=== PATIENT | male | born 1955 | race African-American/Black ===

== ENCOUNTER 2020-01-07 10:07 | Inpatient (IN) | payer MEDICARE, MEDICAID ==
[~2020-01-07] VITALS: Ht 175.3 cm; Wt 67.2 kg
[2020-01-07] MEDS ORDERED: ACETAMINOPHEN 325MG TABLET PO STA (10:18)
[2020-01-07] MEDS ORDERED: LIDOCAINE HCL/PF 1% 2ML VIAL ONE (10:26)
[2020-01-07] MEDS ORDERED: SODIUM CHLORIDE 0.9% 1000ML BAG (SEPSIS BOLUS) IV ONE (10:30)
[2020-01-07] MEDS ORDERED: LORAZEPAM 2MG/ML CPJ ONE (10:56)
[2020-01-07] MEDS ORDERED: LORAZEPAM 2MG/ML CPJ IV ONE (11:00)
[2020-01-07] MEDS ORDERED: ACETAMINOPHEN 650MG SUPP PR ONE (11:00)
[2020-01-07 11:06] LABS: BASOPHILS % 0.8 % (0.0-2.0); EOSINOPHILS % 0.7 % (0.0-5.0); HEMATOCRIT. 35.4 % (42.0-52.0); HEMOGLOBIN. 12.3 g/dL (14.0-18.0); LYMPHOCYTES % 12.7 % (20.0-50.0); MEAN CORPUSCULAR HEMOGLOBIN 31.2 pg (28.0-32.0); MEAN CORPUSCULAR VOLUME 89.9 fL (80.0-94.0); MEAN PLATELET VOLUME 8.6 fl (7.4-10.4); MONOCYTES % 7.2 % (2.0-8.0); NEUTROPHILS % 78.6 % (40.0-76.0); PLATELET 222 x1000/uL (130-400); RED BLOOD CELL COUNT 3.94 mill/uL (4.7-6.1); RED CELL DISTRIBUTION WIDTH 17.4 % (11.6-14.6)
[2020-01-07 11:17] LABS: CLARITY URINE CLEAR (CLEAR); COLOR URINE YELLOW (YELLOW); KETONES URINE NEGATIVE (NEGATIVE); LEUKOCYTE ESTERASE URINE NEGATIVE (NEGATIVE); NITRITE URINE NEGATIVE (NEGATIVE); OCCULT BLOOD URINE NEGATIVE (NEGATIVE); PROTEIN URINE NEGATIVE (NEGATIVE); SPECIFIC GRAVITY URINE 1.014 (1.005-1.030); UROBILINOGEN URINE 0.2 E.U./dL (0.2-1.0)
[2020-01-07 11:17] LABS: CHLORIDE 102 mEq/L (98-107)
[2020-01-07 11:48] LABS: INR 1.1
[2020-01-07] MEDS ORDERED: IPRATROPIUM/ALBUTEROL 0.5-3(2.5)MG/3ML NEB HHN PRN (13:00)
[2020-01-07] MEDS ORDERED: LORAZEPAM 2MG/ML CPJ IV PRN (13:00)
[2020-01-07] MEDS ORDERED: ONDANSETRON HCL 4MG/2ML INJ IV PRN (13:00)
[2020-01-07] MEDS ORDERED: CLONIDINE 0.1MG TABLET PO PRN (13:00)
[2020-01-07] MEDS ORDERED: LEVOFLOXACIN 750MG PREMIX 150 ML IV NR (14:06)
[2020-01-07 14:09] LABS: FOLIC ACID (FOLATE) SERUM >20 ng/mL ng/mL (>5.38)
[2020-01-07] MEDS: SODIUM CHLORIDE 0.9% 1,000 ML IV SCH (14:16)
[2020-01-07] MEDS: LEVETIRACETAM 500MG PREMIX 100 ML IV NR ×2 (14:16→14:29)
[2020-01-07 14:19] LABS: VITAMIN B12 SERUM 594 pg/mL (211-911)
[2020-01-07] MEDS: ENOXAPARIN 40MG/0.4ML SYR SUBCUT SCH (14:30)
[2020-01-07 15:59] LABS: BG BASE EXCESS -2.3 mmol/L (-2.0-2.0); BG CARBOXYHEMOGLOBIN 0.3 % (0.5-1.5); BG METHEMOGLOBIN 0.2 % (0.0-1.5); BG OXYHEMOGLOBIN 95.5 % (94.0-97.0); BG PCO2 31.5 mmHg (35.0-45.0); BG PH 7.442 (7.350-7.450); BG PO2 77.9 mmHg (75.0-100.0); BG SAMPLE SITE RIGHT RADIAL; BG TOTAL HEMOGLOBIN 12.1 g/dL (12.0-18.0); BG VENT MODE ROOM AIR
[2020-01-07] MEDS ORDERED: LEVETIRACETAM 500MG PREMIX 100 ML IV SCH (21:00)
[2020-01-07 23:41] VITALS: BP 132/74
[2020-01-08] VITALS (13 sets, daily range): BP systolic 90–132; BP diastolic 49–82
[2020-01-08] MEDS: LEVETIRACETAM 500MG PREMIX 100 ML IV SCH ×2 (01:27→20:30)
[2020-01-08] MEDS: SODIUM CHLORIDE 0.9% 1,000 ML IV SCH ×2 (04:16→14:23)
[2020-01-08 07:00] LABS: BASOPHILS % 0.8 % (0.0-2.0); EOSINOPHILS % 1.2 % (0.0-5.0); HEMATOCRIT. 34.5 % (42.0-52.0); HEMOGLOBIN. 11.8 g/dL (14.0-18.0); LYMPHOCYTES % 24.8 % (20.0-50.0); MEAN CORPUSCULAR HEMOGLOBIN 30.8 pg (28.0-32.0); MEAN CORPUSCULAR VOLUME 90.1 fL (80.0-94.0); MEAN PLATELET VOLUME 8.9 fl (7.4-10.4); MONOCYTES % 13.1 % (2.0-8.0); NEUTROPHILS % 60.1 % (40.0-76.0); PLATELET 210 x1000/uL (130-400); RED BLOOD CELL COUNT 3.83 mill/uL (4.7-6.1); RED CELL DISTRIBUTION WIDTH 17.6 % (11.6-14.6)
[2020-01-08 07:05] LABS: CHLORIDE 108 mEq/L (98-107)
[2020-01-08 07:21] LABS: LDL CHOLESTEROL 64 mg/dL (5-100)
[2020-01-08 07:22] LABS: HDL CHOLESTEROL 64 mg/dL (40-59)
[2020-01-08] MEDS ORDERED: LEVOFLOXACIN 750MG PREMIX 150 ML IV SCH (13:00)
[2020-01-08] MEDS: LEVOFLOXACIN 750MG PREMIX 150 ML IV SCH (14:02)
[2020-01-08] MEDS: ENOXAPARIN 40MG/0.4ML SYR SUBCUT SCH (14:02)
[2020-01-08] MEDS: FOLIC ACID/VITAMIN B COMP W-C TABLET PO SCH (17:09)
[2020-01-08] MEDS: THIAMINE HCL 100MG TABLET PO SCH (17:09)
[2020-01-09] VITALS (11 sets, daily range): BP systolic 112–147; BP diastolic 21–93
[2020-01-09] MEDS: SODIUM CHLORIDE 0.9% 1,000 ML IV SCH ×2 (05:08→16:39)
[2020-01-09 06:40] LABS: HEMATOCRIT. 32.8 % (42.0-52.0); HEMOGLOBIN. 11.1 g/dL (14.0-18.0); MEAN CORPUSCULAR HEMOGLOBIN 30.5 pg (28.0-32.0); MEAN CORPUSCULAR VOLUME 89.8 fL (80.0-94.0); MEAN PLATELET VOLUME 8.8 fl (7.4-10.4); PLATELET 194 x1000/uL (130-400); RED BLOOD CELL COUNT 3.65 mill/uL (4.7-6.1); RED CELL DISTRIBUTION WIDTH 17.5 % (11.6-14.6)
[2020-01-09 06:46] LABS: CHLORIDE 111 mEq/L (98-107)
[2020-01-09] MEDS: LEVETIRACETAM 500MG PREMIX 100 ML IV SCH (09:11)
[2020-01-09] MEDS: THIAMINE HCL 100MG TABLET PO SCH (09:11)
[2020-01-09] MEDS: FOLIC ACID/VITAMIN B COMP W-C TABLET PO SCH (09:11)
[2020-01-09 12:41] LABS: PLATELET ESTIMATE NORMAL
[2020-01-09] MEDS: LEVOFLOXACIN 750MG PREMIX 150 ML IV SCH (14:57)
[2020-01-09] MEDS: ENOXAPARIN 30MG/0.3ML SYR SUBCUT SCH (14:57)
[2020-01-09] MEDS: LEVETIRACETAM 500MG TABLET PO SCH (20:58)
[2020-01-10] VITALS: BP 130/93
[2020-01-10] MEDS ORDERED: HYDROCODONE/ACETAMINOPHEN 5/325MG TABLET PO PRN
[2020-01-10 04:00] VITALS: BP 95/62
[2020-01-10 07:12] LABS: HEMATOCRIT. 32.8 % (42.0-52.0); HEMOGLOBIN. 11.4 g/dL (14.0-18.0); MEAN CORPUSCULAR HEMOGLOBIN 30.7 pg (28.0-32.0); MEAN CORPUSCULAR VOLUME 88.6 fL (80.0-94.0); MEAN PLATELET VOLUME 8.6 fl (7.4-10.4); PLATELET 209 x1000/uL (130-400); RED CELL DISTRIBUTION WIDTH 17.2 % (11.6-14.6)
[2020-01-10 07:18] LABS: CHLORIDE 106 mEq/L (98-107)
[2020-01-10 08:00] VITALS: BP 109/74
[2020-01-10] MEDS ORDERED: THIA100T72 PO (09:39)
[2020-01-10] MEDS ORDERED: KEPP500 PO (09:39)
[2020-01-10] MEDS ORDERED: NEPVIT PO (09:39)
[2020-01-10] MEDS ORDERED: POTASSIUM CHLORIDE 20MEQ TABLET SR PO NR (09:45)
[2020-01-10] MEDS: FOLIC ACID/VITAMIN B COMP W-C TABLET PO SCH (09:46)
[2020-01-10] MEDS: SODIUM CHLORIDE 0.9% 1,000 ML IV SCH (09:46)
[2020-01-10] MEDS: THIAMINE HCL 100MG TABLET PO SCH (09:46)
[2020-01-10] MEDS: LEVETIRACETAM 500MG TABLET PO SCH (09:47)
[2020-01-10 12:00] VITALS: BP 149/101
[2020-01-10 13:01] LABS: PLATELET ESTIMATE NORMAL
[2020-01-10] MEDS: ENOXAPARIN 30MG/0.3ML SYR SUBCUT SCH (14:23)
[2020-01-10 15:10] VITALS: BP 149/101
== END 2020-01-10 16:15 | DRG 53 ==
LOC: ER 10:07 → EDBEDREQ 10:20 → ENRESERV 21:55 → CANRESERV 21:55 → ENRESERV 21:58 → 3WST 01-08 00:31 → 7WST 01-09 21:53
PROVIDERS: ADMIT Internal Medicine; ATTEND Internal Medicine
DX: G40.411 Other generalized epilepsy and epileptic syndromes, intractable, with status epilepticus (principal); I69.30 Unspecified sequelae of cerebral infarction; F03.90 Unspecified dementia, unspecified severity, without behavioral disturbance, psychotic disturbance, mood disturbance, and anxiety; B18.2 Chronic viral hepatitis C; K76.0 Fatty (change of) liver, not elsewhere classified; F10.10 Alcohol abuse, uncomplicated; M19.90 Unspecified osteoarthritis, unspecified site; D64.9 Anemia, unspecified; I10 Essential (primary) hypertension; Z88.0 Allergy status to penicillin
CPT/HCPCS: 36415; 36600; 70551; 71045; 80048; 80053; 80061; 81003; 82375; 82607; 82746; 82805; 82962; 83605; 84145; 84443; 84484; 85025; 93005; 93970; 95816; 99285; J1650; J1953; J1956; J2060; J3490; J7030